=== PATIENT | female | born 1950 | race Caucasian/White ===

== ENCOUNTER → 2017-06-16 | Outpatient (CLI) | payer BC ==
[2015-01-12 14:15] VITALS: BP 113/60
--- NOTE | 2017-06-17 17:27 | MG ---
HISTORY: Screening Study: Bilateral digital screening mammography with CAD Comparison: Multiple priors dating back to May 02, 2010 Technique: Implant displaced and non implant displaced CC and MLO views of both breasts were obtained . Findings: The patient has undergone interval bilateral breast augmentation with bilateral subpectoral silicone implants noted which appear grossly intact. There is no new or developing suspicious mass or architec tural distortion with an otherwise stable mammographic appearance of both breasts. Benign calcificati ons are noted without suspicious grouped pleomorphic microcalcifications. There is no skin thickening or nipple retraction. No pathologic lymphadenopathy is identified. IMPRESSION: No mammographic evidence of malignancy. BI-RADS 2. Benign findings. Yearly mammographic imaging is recommended. * 0 (ZERO) - ASSESSMENT INCOMPLETE; ADDITIONAL IMAGING IS NEEDED. * 1/1 (ONE) - NEGATIVE. * 2/II (TWO) - BENIGN FINDINGS. * 3/III (THREE) - PROBABLY BENIGN FINDING; SHORT INTERVAL FOLLOW-UP SUGGESTED. * 4/IV (FOUR) - SUSPICIOUS ABNORMALITY; BIOPSY SHOULD BE CONSIDERED. * 5/V (FIVE) - HIGHLY SUSPICIOUS OF MALIGNANCY; BIOPSY SHOULD BE PERFORMED. * 6/ (SIX) - KNOWN MALIGNANCY. A NEGATIVE X-RAY REPORT SHOULD NOT DELAY BIOPSY IF A DOMINANT OR CLINICALLY SUSPICIOUS MASS IS PRESENT; 4 TO 8 PERCENT OF CANCERS ARE NOT IDENTIFIED BY X-RAY. A NEGA TIVE REPORT MAY REINFORCE THE CLINICAL IMPRESSION. ADENOSIS AND DENSE BREASTS MAY OBSCURE AN UNDERLY ING NEOPLASM. Reported By:
== END ==
LOC: RAD 14:27
PROVIDERS: ATTEND Nurse Practitioner
DX: Z12.31 Encounter for screening mammogram for malignant neoplasm of breast (principal)
CPT/HCPCS: 77067